=== PATIENT | male | born 1965 | race Caucasian/White ===

== ENCOUNTER 2021-06-20 08:32 | Outpatient (CLI) | payer BC | END 2021-06-20 08:33 | disposition home or self-care (01) | LOC: CSHCT 08:32 | PROVIDERS: ATTEND Physician Assistant Medical | DX: K59.09 Other constipation (principal); R10.2 Pelvic and perineal pain; R14.0 Abdominal distension (gaseous); K76.9 Liver disease, unspecified | CPT/HCPCS: 74177 ==

== ENCOUNTER 2021-07-02 16:12 | Outpatient (CLI) | payer BC | END 2021-07-02 16:13 | disposition home or self-care (01) | LOC: CSHULT 16:12 | PROVIDERS: ATTEND Urology | DX: G89.4 Chronic pain syndrome (principal); R10.2 Pelvic and perineal pain; R35.0 Frequency of micturition; R31.9 Hematuria, unspecified | CPT/HCPCS: 76870; 93976 ==